=== PATIENT | female | born 1975 | race Caucasian/White ===

== ENCOUNTER 2017-09-18 10:04 | Day surgery (SDC) | payer OTHER ==
[~2017-09-18 10:04] MED LIST: LIDOCAINE 2% INJ 100 MG/5 ML SDV (FOR ANES.) As Ordered; PROPOFOL 200 MG/20 ML VIAL As Ordered
[2017-09-18] MEDS: NS 1,000 ML IV (10:15)
[2017-09-18] MEDS ORDERED: PROPOFOL 200 MG/20 ML VIAL As Ordered (11:12)
== END 2017-09-18 12:01 | disposition home or self-care (01) ==
LOC: M OPP 10:04
DX: Z12.11 Encounter for screening for malignant neoplasm of colon (principal); Z80.0 Family history of malignant neoplasm of digestive organs; K64.0 First degree hemorrhoids; L30.9 Dermatitis, unspecified
CPT/HCPCS: 45378

== ENCOUNTER 2023-05-15 08:16 | Day surgery (SDC) | payer OTHER ==
[~2023-05-15] VITALS: Ht 172.7 cm; Wt 69.4 kg
[~2023-05-15 08:16] MED LIST changes: -LIDOCAINE 2% INJ 100 MG/5 ML SDV (FOR ANES.) As Ordered; +MULT1TAB10 PO; +NS 1,000 ML IV ONE; -PROPOFOL 200 MG/20 ML VIAL As Ordered; +VITA100093 PO; +VITMTA PO
[2023-05-15] MEDS ORDERED: propofoL 200 MG/20 ML VIAL As Ordered ONE ×2 (09:11→09:23)
[2023-05-15] MEDS ORDERED: GLYCOPYRROLATE INJ 0.2 MG/ML 2 ML VIAL As Ordered ONE (09:21)
[2023-05-15 09:31] VITALS: TEMP 98.2
[2023-05-15 09:51] VITALS: BP 114/65; O2SAT 99
== END 2023-05-15 10:02 | disposition home or self-care (01) ==
LOC: M OPP 08:16
PROVIDERS: ATTEND Internal Medicine Gastroenterology
DX: Z12.11 Encounter for screening for malignant neoplasm of colon (principal); Z83.719 Family history of colon polyps, unspecified; K64.8 Other hemorrhoids